=== PATIENT | female | born 1980 | race Caucasian/White ===

== ENCOUNTER 2021-11-26 19:39 | Emergency (ER) | payer OTHER, SELFPAY ==
[2021-11-26 20:08] VITALS: BP 108/53; PULSE 106; RESP 18; TEMP 37.1; O2SAT 100
--- NOTE | 2021-11-26 20:48 | ED.GENADULT ---
HPI - General Adult General Chief complaint: Recheck/Abnormal Lab/Rx Stated complaint: low iron levels Time Seen by Provider: 11/26/21 20:38 Source: patient History of Present Illness HPI narrative: 41-year-old female history of anemia presented to the emergency department for an iron infusion/blood transfusion. Patient states she recently got a new primary care physician and patient was referred to the hematology and had her first appointment today. Patient received a phone call after getting home and was told to present tomorrow morning for an iron infusion or blood transfusion. Patient was also told that she can present to the emergency department for an iron infusion. Patient denies any complaint at this time. Patient denies any chest pain or shortness of breath. Patient denies any active bleeding. Patient states she does have history of anemia and has not been taking her iron pills. Related Data Home Medications Medication Instructions Recorded Confirmed diazepam 5 mg PO BID 11/26/21 11/26/21 divalproex [Depakote] 125 mg PO TID 11/26/21 11/26/21 ferrous sulfate 325 mg PO DAILY 11/26/21 11/26/21 mirtazapine 15 mg PO HS 11/26/21 11/26/21 propranolol 10 mg PO TID 11/26/21 11/26/21 Allergies Allergy/AdvReac Type Severity Reaction Status Date / Time No Known Allergies Allergy Verified 11/26/21 20:15 Review of Systems Review of Systems: CONSTITUTIONAL: Denies fever, chills, or sweats. EYES: Denies visual changes, redness, or discharge. ENT: Denies rhinorrhea, congestion, sore throat, or otalgia. CARDIOVASCULAR: Denies chest pain, palpitations, or edema. RESPIRATORY: Denies cough or dyspnea. GASTROINTESTINAL: Denies abdominal pain, nausea, vomiting, or diarrhea. GENITOURINARY: Denies dysuria or hematuria. SKIN: Denies rash or itching. MUSCULOSKELETAL: Denies back pain, joint pain, or myalgia. NEUROLOGIC: Denies headache, numbness, or weakness. Exam Narrative: APPEARANCE: Well appearing, no pain, no distress, well-nourished. HEAD: normocephalic, atraumatic. EYES: PERRLA/EOMI, conjunctivae clear. NOSE: Normal no drainage RESPIRATORY: Airway patent, respirations nonlabored. Clear to auscultation bilaterally, no rales, rhonchi, wheezing. CARDIOVASCULAR: Regular rate and rhythm without murmurs rubs or gallops. ABDOMINAL: Soft, nontender, nondistended, normal bowel sounds MUSCULOSKELETAL: Moves all extremities. Strength/ROM intact, No edema, No calf tenderness. NEURO: Alert. Cranial nerves II through XII intact. Good gait. Good coordination SKIN: Warm, dry. Normal Color Course Course Emergency Course: Patient was offered a blood transfusion but declined and preferred to sign out AMA and have the blood transfusion through her hematology office in the morning. Patient was alert and oriented and capable of making her own decisions. Patient was asymptomatic at time of leaving the emergency department. Vital Signs Vital signs: Vital Signs Temperature 98.8 F 11/26/21 20:08 Pulse Rate 106 H 11/26/21 20:08 Respiratory Rate 18 11/26/21 20:08 Blood Pressure 108/53 L 11/26/21 20:08 Pulse Oximetry 100 11/26/21 20:08 Temperature 98.8 F 11/26/21 20:08 Pulse Rate 80 11/26/21 22:24 Respiratory Rate 18 11/26/21 22:24 Blood Pressure 90/67 L 11/26/21 22:24 Pulse Oximetry 98 11/26/21 22:24 Medical Decision Making Vital Signs Vital Signs: Vital Signs Temperature 98.8 F 11/26/21 20:08 Pulse Rate 106 H 11/26/21 20:08 Respiratory Rate 18 11/26/21 20:08 Blood Pressure 108/53 L 11/26/21 20:08 Pulse Oximetry 100 11/26/21 20:08 Temperature 98.8 F 11/26/21 20:08 Pulse Rate 80 11/26/21 22:24 Respiratory Rate 18 11/26/21 22:24 Blood Pressure 90/67 L 11/26/21 22:24 Pulse Oximetry 98 11/26/21 22:24 Lab Data Lab results reviewed: Yes I reviewed the patient's lab results. Result diagrams: 11/26/21 20:56 11/26/21 20:56 Labs: Lab Results 0
[2021-11-26 21:03] LABS: Basophils Percent Auto 1.1 % (0.2-1.2); Eosinophils Percent Auto 0.5 % (0-4.4); Hematocrit 22.1 % (37.0-47.0); Immature Granulocyte Absolute 0.01 K/mm3 (0.00-0.031); Immature Granulocyte Percent A 0.3 % (0-0.5); Immature Platelet Fraction Pct 9.5 % (0.9-11.2); Lymphocytes Absolute Auto 1.33 K/mm3 (0.9-3.2); Lymphocytes Percent Auto 35.4 % (18.3-44.2); Mean Corpuscular HGB Conc 24.4 g/dl (32-36); Mean Corpuscular Hemoglobin 15.9 pg (26-34); Mean Corpuscular Volume 65.2 fl (80-100); Monocytes Absolute Auto 0.2 K/mm3 (0.1-0.6); Monocytes Percent Auto 5.3 % (2.6-8.5); Neutrophils Absolute Auto 2.2 K/mm3 (1.3-6.7); Neutrophils Percent Auto 57.4 % (45.5-73.1); Platelet Count Result 162 k/mm3 (150-375); Red Blood Count 3.39 M/mm3 (4.2-5.4); Red Cell Distribution Width 21.6 % (11.5-14.5); White Blood Count 3.8 K/mm3 (4.5-10.0)
[2021-11-26 21:04] VITALS: BP 102/71; PULSE 83; RESP 18; O2SAT 94
[2021-11-26 21:11] LABS: Alanine Aminotransferase 13 U/L (4-35); Albumin Level 3.9 g/dL (3.5-5.1); Alkaline Phosphatase 77 U/L (38-126); Anion Gap 4 mmol/L (8-16); Aspartate Amino Transferase 30 U/L (14-36); Bilirubin,Total 0.5 mg/dL (0.2-1.3); Blood Urea Nitrogen 2 mg/dL (7-17); Calcium 8.1 mg/dL (8.4-10.2); Carbon Dioxide 28 mmol/L (22-30); Chloride 103 mmol/L (98-107); Estimated CRCL calculation 146 ml/min; Estimated Glomerular Filt Rate > 60; Glucose 103 mg/dL (65-110); Sodium 135 mmol/L (137-145)
[2021-11-26 21:22] LABS: Hemoglobin 5.4 g/dL (12.0-15.0)
[2021-11-26 21:24] LABS: Ovalocytes 2+ (NORMAL); Platelet Estimate Adequate (Adequate); Poikilocytosis 2+ (NORMAL); Target Cells 1+ (NORMAL)
[2021-11-26 21:25] LABS: Hypochromasia 2+ (NORMAL)
[2021-11-26] MEDS: SODIUM CHLORIDE 0.9% IV 250 ML 30 ML IV CONT (21:44)
--- NOTE | 2021-11-26 21:48 | PC.NURSE ---
Pt states that the oncology office stated she could come in tomorrow for a transfusion. NOHELIA gómez is aware and states pt may sign out AMA
[2021-11-26 22:24] VITALS: BP 90/67; PULSE 80; RESP 18; O2SAT 98
--- NOTE | 2021-11-26 22:24 | PC.NURSE ---
Pt states she wants to leave AMA and f/u with her oncologist in am. ERP is aware .
== END 2021-11-26 22:25 | disposition left against medical advice (07) ==
PROVIDERS: Emergency Provider Emergency Medicine; PCP Internal Medicine
DX: D64.9 Anemia, unspecified (principal); T45.4X6A Underdosing of iron and its compounds, initial encounter; Z91.128 Patient's intentional underdosing of medication regimen for other reason
CPT/HCPCS: 36415; 80053; 85025; 85055; 86850; 86900; 86901; 86920; 96360; 99283; J7050